=== PATIENT | male | born 1960 | race African-American/Black ===

== ENCOUNTER 2020-08-01 11:10 | Inpatient (IN) | payer MEDICAID ==
[~2020-08-01] VITALS: Ht 195.6 cm; Wt 117.5 kg
[2020-08-01 12:02] LABS: BASOPHILS % 0.9 % (0.0-2.0); EOSINOPHILS % 2.3 % (0.0-5.0); LYMPHOCYTES % 17.2 % (20.0-50.0); MEAN CORPUSCULAR VOLUME 91.5 fL (80.0-94.0); MEAN PLATELET VOLUME 8.8 fl (7.4-10.4); MONOCYTES % 6.2 % (2.0-8.0); NEUTROPHILS % 73.4 % (40.0-76.0); PLATELET 246 x1000/uL (130-400); RED CELL DISTRIBUTION WIDTH 15.2 % (11.6-14.6)
[2020-08-01 12:07] LABS: CHLORIDE 106 mEq/L (98-107)
[2020-08-01 12:11] LABS: ETHANOL BLOOD < 10 mg/dL; INR 0.9
[2020-08-01 12:14] LABS: LDL CHOLESTEROL 188 mg/dL (5-100)
[2020-08-01] MEDS ORDERED: ASPIRIN 325MG EC TABLET PO ONE (12:45)
[2020-08-01] MEDS ORDERED: HYDRALAZINE HCL 25MG TABLET PO ONE (17:00)
[2020-08-01] MEDS ORDERED: HYDRALAZINE 20MG/ML VIAL IV ONE (17:00)
[2020-08-01 18:35] LABS: CLARITY URINE CLEAR (CLEAR); COLOR URINE YELLOW (YELLOW); KETONES URINE TRACE (NEGATIVE); LEUKOCYTE ESTERASE URINE NEGATIVE (NEGATIVE); NITRITE URINE NEGATIVE (NEGATIVE); OCCULT BLOOD URINE TRACE (NEGATIVE); PROTEIN URINE 3+ (NEGATIVE); SPECIFIC GRAVITY URINE 1.025 (1.005-1.030)
[2020-08-01 18:44] LABS: *AMPHETAMINES SCREEN URINE NEGATIVE (NEGATIVE); *BARBITURATES SCREEN URINE NEGATIVE (NEGATIVE); *BENZODIAZEPINES SCREEN URINE NEGATIVE (NEGATIVE); *COCAINE SCREEN URINE PRESUMTIVE POSITIVE (NEGATIVE); METHADONE URINE SCREEN NEGATIVE (NEGATIVE); OPIATES URINE SCREEN NEGATIVE (NEGATIVE)
[2020-08-01 18:45] LABS: CANNABINOID URINE SCREEN NEGATIVE (NEGATIVE); PHENCYCLIDINE URINE SCREEN NEGATIVE (NEGATIVE)
[2020-08-01] MEDS ORDERED: HYDROCODONE/ACETAMINOPHEN 5/325MG TABLET PO PRN (19:45)
[2020-08-01] MEDS ORDERED: ONDANSETRON HCL 4MG/2ML INJ IV PRN (19:45)
[2020-08-01] MEDS ORDERED: ACETAMINOPHEN 325MG TABLET PO PRN ×2 (19:45)
[2020-08-01] MEDS ORDERED: IPRATROPIUM/ALBUTEROL 0.5-3(2.5)MG/3ML NEB HHN PRN (19:45)
[2020-08-01] MEDS ORDERED: DOCUSATE SODIUM 100MG CAPSULE PO PRN (19:45)
[2020-08-01] MEDS ORDERED: LORAZEPAM 0.5MG TABLET PO PRN (19:45)
[2020-08-01 21:15] VITALS: BP 179/88
[2020-08-01] MEDS ORDERED: ATOR10TA MT (22:11)
[2020-08-01] MEDS ORDERED: GLIP5TAB12 MT (22:12)
[2020-08-01] MEDS ORDERED: METF-416 MT (22:12)
[2020-08-01] MEDS ORDERED: CLONIDINE 0.1MG TABLET PO PRN (23:15)
[2020-08-02] VITALS (7 sets, daily range): BP systolic 134–193; BP diastolic 73–96
[2020-08-02] MEDS ORDERED: GUAIFENESIN/CODEINE 200-20MG/10ML UDC PO PRN (08:30)
[2020-08-02] MEDS ORDERED: DEXTROSE 50% WATER 50ML SYRINGE IV PRN (09:30)
[2020-08-02] MEDS ORDERED: CLOPIDOGREL 75MG TABLET PO SCH (09:45)
[2020-08-02] MEDS: ASPIRIN 81MG TABLET PO SCH (10:08)
[2020-08-02] MEDS: BLOOD SUGAR DIAGNOSTIC STRIP TEST SCH ×3 (12:29→21:00)
[2020-08-02] MEDS: INSULIN LISPRO 100 UNITS/ML SUBCUT SCH ×3 (12:41→21:07)
[2020-08-02] MEDS: LABETALOL 5MG/ML SYR 20 MG/4 ML SYRINGE IV PRN ×2 (12:44→20:57)
[2020-08-02] MEDS ORDERED: IOHEXOL-350 100 ML BOTTLE ONE (15:00)
[2020-08-02 16:36] LABS: T4 FREE 0.9 ng/dL (0.76-1.46)
[2020-08-02 16:49] LABS: FOLIC ACID (FOLATE) SERUM 10.9 ng/mL (>5.38)
[2020-08-02] MEDS: CYANOCOBALAMIN 1000MCG/ML VIAL IM SCH (21:06)
[2020-08-02] MEDS: ATORVASTATIN CALCIUM 40MG TABLET PO SCH (21:06)
[2020-08-03] VITALS (7 sets, daily range): BP systolic 137–178; BP diastolic 66–89
[2020-08-03] MEDS: BLOOD SUGAR DIAGNOSTIC STRIP TEST SCH ×4 (05:54→21:00)
[2020-08-03 06:15] LABS: BASOPHILS % 0.5 % (0.0-2.0); EOSINOPHILS % 2.4 % (0.0-5.0); HEMATOCRIT. 40.3 % (42.0-52.0); HEMOGLOBIN. 14.2 g/dL (14.0-18.0); LYMPHOCYTES % 24.8 % (20.0-50.0); MEAN CORPUSCULAR HEMOGLOBIN 32.1 pg (28.0-32.0); MEAN CORPUSCULAR VOLUME 91.2 fL (80.0-94.0); MEAN PLATELET VOLUME 8.7 fl (7.4-10.4); MONOCYTES % 6.7 % (2.0-8.0); NEUTROPHILS % 65.6 % (40.0-76.0); PLATELET 224 x1000/uL (130-400); RED BLOOD CELL COUNT 4.42 mill/uL (4.7-6.1)
[2020-08-03] MEDS: INSULIN LISPRO 100 UNITS/ML SUBCUT SCH ×4 (06:17→22:12)
[2020-08-03 06:42] LABS: CHLORIDE 107 mEq/L (98-107)
[2020-08-03] MEDS: ASPIRIN 81MG TABLET PO SCH (09:14)
[2020-08-03] MEDS: AMLODIPINE 5MG TABLET PO SCH (09:15)
[2020-08-03] MEDS: CYANOCOBALAMIN 1000MCG/ML VIAL IM SCH (09:15)
[2020-08-03] MEDS ORDERED: INSULIN GLARGINE UD 100 UNITS/ML SYR SUBCUT SCH (10:00)
[2020-08-03] MEDS: CLOPIDOGREL 75MG TABLET PO SCH (10:02)
[2020-08-03] MEDS: LABETALOL 5MG/ML SYR 20 MG/4 ML SYRINGE IV PRN (13:10)
[2020-08-03] MEDS: ATORVASTATIN CALCIUM 40MG TABLET PO SCH (22:10)
[2020-08-04] VITALS (7 sets, daily range): BP systolic 133–146; BP diastolic 76–94
[2020-08-04] MEDS: BLOOD SUGAR DIAGNOSTIC STRIP TEST SCH ×4 (05:57→21:00)
[2020-08-04] MEDS: INSULIN LISPRO 100 UNITS/ML SUBCUT SCH ×4 (06:18→21:10)
[2020-08-04] MEDS: AMLODIPINE 5MG TABLET PO SCH (09:23)
[2020-08-04] MEDS: CLOPIDOGREL 75MG TABLET PO SCH (09:23)
[2020-08-04] MEDS: ASPIRIN 81MG TABLET PO SCH (09:23)
[2020-08-04] MEDS: CYANOCOBALAMIN 1000MCG/ML VIAL IM SCH (09:23)
[2020-08-04] MEDS: INSULIN GLARGINE UD 100 UNITS/ML SYR SUBCUT SCH (13:01)
[2020-08-04] MEDS: ATORVASTATIN CALCIUM 40MG TABLET PO SCH (21:06)
[2020-08-05] VITALS: BP 149/74
[2020-08-05 04:00] VITALS: BP 171/90
[2020-08-05] MEDS: LABETALOL 5MG/ML SYR 20 MG/4 ML SYRINGE IV PRN (04:47)
[2020-08-05] MEDS: BLOOD SUGAR DIAGNOSTIC STRIP TEST SCH ×4 (06:28→20:42)
[2020-08-05] MEDS: INSULIN LISPRO 100 UNITS/ML SUBCUT SCH ×4 (06:32→20:26)
[2020-08-05 08:00] VITALS: BP 138/72
[2020-08-05] MEDS: CLOPIDOGREL 75MG TABLET PO SCH (08:50)
[2020-08-05] MEDS: ASPIRIN 81MG TABLET PO SCH (08:50)
[2020-08-05] MEDS: CYANOCOBALAMIN 1000MCG/ML VIAL IM SCH (08:50)
[2020-08-05] MEDS: AMLODIPINE 5MG TABLET PO SCH (08:50)
[2020-08-05] MEDS: INSULIN GLARGINE UD 100 UNITS/ML SYR SUBCUT SCH (11:22)
[2020-08-05 12:00] VITALS: BP 163/87
[2020-08-05 16:00] VITALS: BP 125/56
[2020-08-05 20:20] VITALS: BP 110/56
[2020-08-05] MEDS: ATORVASTATIN CALCIUM 40MG TABLET PO SCH (20:24)
[2020-08-06] VITALS: BP 125/81
[2020-08-06 04:00] VITALS: BP 122/67
[2020-08-06] MEDS: INSULIN LISPRO 100 UNITS/ML SUBCUT SCH ×4 (06:20→21:08)
[2020-08-06] MEDS: BLOOD SUGAR DIAGNOSTIC STRIP TEST SCH ×4 (06:22→21:08)
[2020-08-06 08:00] VITALS: BP 146/88
[2020-08-06] MEDS: ASPIRIN 81MG TABLET PO SCH (09:22)
[2020-08-06] MEDS: AMLODIPINE 5MG TABLET PO SCH (09:22)
[2020-08-06] MEDS: CYANOCOBALAMIN 1000MCG/ML VIAL IM SCH (09:22)
[2020-08-06] MEDS: CLOPIDOGREL 75MG TABLET PO SCH (09:23)
[2020-08-06 12:00] VITALS: BP 128/68
[2020-08-06 16:00] VITALS: BP 131/72
[2020-08-06 20:00] VITALS: BP 160/76
[2020-08-06] MEDS: ATORVASTATIN CALCIUM 40MG TABLET PO SCH (21:07)
[2020-08-06] MEDS: INSULIN GLARGINE UD 100 UNITS/ML SYR SUBCUT SCH (22:02)
[2020-08-07] VITALS: BP 150/77
[2020-08-07 04:00] VITALS: BP 185/91
[2020-08-07] MEDS: LABETALOL 5MG/ML SYR 20 MG/4 ML SYRINGE IV PRN (04:48)
[2020-08-07] MEDS: BLOOD SUGAR DIAGNOSTIC STRIP TEST SCH ×4 (06:33→20:01)
[2020-08-07] MEDS: INSULIN LISPRO 100 UNITS/ML SUBCUT SCH ×4 (06:33→20:01)
[2020-08-07 08:00] VITALS: BP 136/76
[2020-08-07] MEDS: CYANOCOBALAMIN 1000MCG/ML VIAL IM SCH (09:39)
[2020-08-07] MEDS: CLOPIDOGREL 75MG TABLET PO SCH (09:39)
[2020-08-07] MEDS: ASPIRIN 81MG TABLET PO SCH (09:39)
[2020-08-07] MEDS: AMLODIPINE 5MG TABLET PO SCH ×2 (09:39→18:10)
[2020-08-07] MEDS: INSULIN GLARGINE UD 100 UNITS/ML SYR SUBCUT SCH ×2 (09:40→21:35)
[2020-08-07 12:00] VITALS: BP 144/94
[2020-08-07 16:00] VITALS: BP 140/76
[2020-08-07 20:00] VITALS: BP 140/86
[2020-08-07] MEDS: ATORVASTATIN CALCIUM 40MG TABLET PO SCH (20:00)
[2020-08-08] VITALS (7 sets, daily range): BP systolic 102–182; BP diastolic 55–96
[2020-08-08] MEDS: LABETALOL 5MG/ML SYR 20 MG/4 ML SYRINGE IV PRN (05:05)
[2020-08-08] MEDS: BLOOD SUGAR DIAGNOSTIC STRIP TEST SCH ×4 (06:16→21:15)
[2020-08-08] MEDS: INSULIN LISPRO 100 UNITS/ML SUBCUT SCH ×5 (06:17→21:16)
[2020-08-08 07:55] LABS: BASOPHILS % 0.9 % (0.0-2.0); HEMATOCRIT. 40.9 % (42.0-52.0); HEMOGLOBIN. 14.4 g/dL (14.0-18.0); LYMPHOCYTES % 21.9 % (20.0-50.0); MEAN CORPUSCULAR HEMOGLOBIN 32.1 pg (28.0-32.0); MEAN CORPUSCULAR VOLUME 91.5 fL (80.0-94.0); MEAN PLATELET VOLUME 9.1 fl (7.4-10.4); NEUTROPHILS % 67.2 % (40.0-76.0); PLATELET 246 x1000/uL (130-400); RED BLOOD CELL COUNT 4.48 mill/uL (4.7-6.1); RED CELL DISTRIBUTION WIDTH 14.6 % (11.6-14.6)
[2020-08-08 08:19] LABS: CHLORIDE 106 mEq/L (98-107)
[2020-08-08] MEDS: CLOPIDOGREL 75MG TABLET PO SCH (08:34)
[2020-08-08] MEDS: ASPIRIN 81MG TABLET PO SCH (08:34)
[2020-08-08] MEDS: CYANOCOBALAMIN 1000MCG/ML VIAL IM SCH (08:34)
[2020-08-08] MEDS: AMLODIPINE 5MG TABLET PO SCH ×2 (08:34→21:00)
[2020-08-08] MEDS: INSULIN GLARGINE UD 100 UNITS/ML SYR SUBCUT SCH ×2 (12:03→21:17)
[2020-08-08] MEDS: ATORVASTATIN CALCIUM 40MG TABLET PO SCH (21:15)
[2020-08-09 04:00] VITALS: BP 138/57
[2020-08-09] MEDS: BLOOD SUGAR DIAGNOSTIC STRIP TEST SCH ×4 (05:40→20:23)
[2020-08-09] MEDS: INSULIN LISPRO 100 UNITS/ML SUBCUT SCH ×7 (05:40→20:23)
[2020-08-09 08:00] VITALS: BP 147/84
[2020-08-09] MEDS: CLOPIDOGREL 75MG TABLET PO SCH (09:49)
[2020-08-09] MEDS: AMLODIPINE 5MG TABLET PO SCH ×2 (09:49→20:39)
[2020-08-09] MEDS: ASPIRIN 81MG TABLET PO SCH (09:49)
[2020-08-09] MEDS: INSULIN GLARGINE UD 100 UNITS/ML SYR SUBCUT SCH ×2 (09:50→21:56)
[2020-08-09 12:00] VITALS: BP 161/80
[2020-08-09] MEDS: LABETALOL 5MG/ML SYR 20 MG/4 ML SYRINGE IV PRN (15:25)
[2020-08-09 16:00] VITALS: BP 160/89
[2020-08-09 20:21] VITALS: BP 137/47
[2020-08-09] MEDS: ATORVASTATIN CALCIUM 40MG TABLET PO SCH (20:37)
[2020-08-10 00:29] VITALS: BP 131/86
[2020-08-10 04:00] VITALS: BP 111/92
[2020-08-10] MEDS: BLOOD SUGAR DIAGNOSTIC STRIP TEST SCH ×4 (06:45→21:35)
[2020-08-10] MEDS: INSULIN LISPRO 100 UNITS/ML SUBCUT SCH ×7 (07:15→21:34)
[2020-08-10 08:00] VITALS: BP 160/89
[2020-08-10] MEDS: CLOPIDOGREL 75MG TABLET PO SCH (09:10)
[2020-08-10] MEDS: ASPIRIN 81MG TABLET PO SCH (09:10)
[2020-08-10] MEDS: AMLODIPINE 5MG TABLET PO SCH ×2 (09:11→21:33)
[2020-08-10] MEDS: INSULIN GLARGINE UD 100 UNITS/ML SYR SUBCUT SCH ×2 (09:46→21:35)
[2020-08-10 12:00] VITALS: BP 157/82
[2020-08-10 16:00] VITALS: BP 142/80
[2020-08-10 20:00] VITALS: BP 154/79
[2020-08-10] MEDS: ATORVASTATIN CALCIUM 40MG TABLET PO SCH (21:33)
[2020-08-11] VITALS: BP 138/66
[2020-08-11 04:00] VITALS: BP 146/89
[2020-08-11] MEDS: BLOOD SUGAR DIAGNOSTIC STRIP TEST SCH ×4 (06:44→21:05)
[2020-08-11] MEDS: INSULIN LISPRO 100 UNITS/ML SUBCUT SCH ×8 (06:44→21:09)
[2020-08-11 08:00] VITALS: BP 138/80
[2020-08-11] MEDS: AMLODIPINE 5MG TABLET PO SCH ×2 (09:55→21:07)
[2020-08-11] MEDS: ASPIRIN 81MG TABLET PO SCH (09:55)
[2020-08-11] MEDS: INSULIN GLARGINE UD 100 UNITS/ML SYR SUBCUT SCH ×2 (09:56→21:08)
[2020-08-11] MEDS: CLOPIDOGREL 75MG TABLET PO SCH (09:56)
[2020-08-11 12:00] VITALS: BP 150/81
[2020-08-11 16:00] VITALS: BP 145/76
[2020-08-11] MEDS ORDERED: ASPI-1160 PO (17:46)
[2020-08-11] MEDS ORDERED: INSLIS SUBCUT (17:46)
[2020-08-11] MEDS ORDERED: LANTUSUD SUBCUT (17:46)
[2020-08-11] MEDS ORDERED: CLOP75TA15 PO (17:46)
[2020-08-11] MEDS ORDERED: AMLO5TAB88 PO (17:46)
[2020-08-11] MEDS ORDERED: LIP40 PO (17:46)
[2020-08-11 20:00] VITALS: BP 111/55
[2020-08-11] MEDS: ATORVASTATIN CALCIUM 40MG TABLET PO SCH (21:07)
[2020-08-14 19:10] LABS: 25-HYDROXY VITAMIN D3 14 ng/mL (.)
[2020-08-15] MEDS ORDERED: CYANOCOBALAMIN 1000MCG/ML VIAL IM SCH (09:00)
== END 2020-08-12 00:10 | DRG 45 ==
LOC: ER 11:34 → 5WST 18:18 → EDBEDREQ 18:21 → ENRESERV 20:27
PROVIDERS: ADMIT Internal Medicine; ATTEND Internal Medicine
DX: I63.9 Cerebral infarction, unspecified (principal); I11.0 Hypertensive heart disease with heart failure; E11.65 Type 2 diabetes mellitus with hyperglycemia; I50.30 Unspecified diastolic (congestive) heart failure; G81.91 Hemiplegia, unspecified affecting right dominant side; D72.829 Elevated white blood cell count, unspecified; E78.00 Pure hypercholesterolemia, unspecified; E78.5 Hyperlipidemia, unspecified; F14.10 Cocaine abuse, uncomplicated; F17.200 Nicotine dependence, unspecified, uncomplicated; E53.8 Deficiency of other specified B group vitamins; I65.22 Occlusion and stenosis of left carotid artery; F17.210 Nicotine dependence, cigarettes, uncomplicated; Z91.19 Patient's noncompliance with other medical treatment and regimen; Z79.84 Long term (current) use of oral hypoglycemic drugs; Z82.49 Family history of ischemic heart disease and other diseases of the circulatory system
CPT/HCPCS: 36415; 70496; 70498; 70544; 70553; 71045; 80048; 80053; 80061; 80305; 80320; 81003; 82306; 82607; 82746; 82962; 83036; 83721; 83735; 84439; 84443; 84481; 84484; 85025; 92523; 92610; 93005; 93306; 97110; 97112; 97162; 97166; 97530; 97535; 99291; J0360; J1815; J3420; J3490; Q9967; G0480